=== PATIENT | male | born 1965 | race Caucasian/White ===

== ENCOUNTER 2017-05-31 14:13 | Emergency (ER) | payer OTHER ==
[~2017-05-31] VITALS: Ht 182.9 cm; Wt 88.5 kg
[2017-05-31] MEDS ORDERED: NORCO 10-325 T1 EACH PO (14:45)
== END 2017-05-31 15:47 | disposition home or self-care (01) ==
LOC: ED 14:13
PROC: 2W3CX1Z Immobilization of Right Lower Arm using Splint (ICD-10-PCS; principal; 2017-05-31)
DX: S62.366A Nondisplaced fracture of neck of fifth metacarpal bone, right hand, initial encounter for closed fracture (principal); V59.9XXA Occupant (driver) (passenger) of pick-up truck or van injured in unspecified traffic accident, initial encounter
CPT/HCPCS: 29125; 73130; 99283